=== PATIENT | female | born 1945 | race Caucasian/White ===

== ENCOUNTER 2024-12-03 15:01 | Emergency (ER) | payer MEDICARE, BC ==
[~2024-12-03] VITALS: Ht 170.2 cm; Wt 71.4 kg
[2024-12-03 17:49] VITALS: BP 187/93; TEMP 97.2; O2SAT 100
== END 2024-12-03 17:58 | disposition home or self-care (01) ==
LOC: M ED 15:01
DX: M71.22 Synovial cyst of popliteal space [Baker], left knee (principal); J45.909 Unspecified asthma, uncomplicated; I10 Essential (primary) hypertension; E78.5 Hyperlipidemia, unspecified; K21.9 Gastro-esophageal reflux disease without esophagitis; Z91.013 Allergy to seafood